=== PATIENT | female | born 1995 | race Caucasian/White ===

== ENCOUNTER 2018-04-28 11:56 | Emergency (ER) | payer OTHER ==
[2018-04-28 12:16] VITALS: BP 127/78; PULSE 73; TEMP 98.3; BMI 28.5
[2018-04-28] MEDS ORDERED: METOCLOPRAMIDE HCL INJECTION 10 MG/2 ML VIAL IVPB ONE (13:38)
[2018-04-28] MEDS ORDERED: ACETAMINOPHEN 1000 MG/100 ML VIAL (NON FORMULARY) IVPB ONE (13:38)
--- NOTE | 2018-04-28 13:38 | PDOC ---
History of Present Illness - General Chief Complaint: Headache Stated Complaint: HEADACHE Time Seen by Provider: 04/28/18 13:33 Past History - Past Medical History Allergies/Adverse Reactions: Allergies Allergy/AdvReac Type Severity Reaction Status Date / Time Penicillins Allergy Verified 04/28/18 13:42 Home Medications: Ambulatory Orders Erythromycin 0.5% Eye Ointment [Erythromycin 0.5% Eye Ointment -] 1 applic OS TID #1 tube 04/28/18 Ferrous Sulfate, Dried [Iron] 159 mg PO DAILY 04/28/18 Ibuprofen 600 mg PO Q6H #30 tablet 04/28/18 - Suicide/Smoking/Psychosocial Hx Smoking History: Never smoked Have you smoked in the past 12 months: No Information on smoking cessation initiated: No Hx Alcohol Use: No Drug/Substance Use Hx: No *Physical Exam - Vital Signs Last Vital Signs Temp Pulse Resp BP Pulse Ox 98.3 F 73 20 127/78 99 04/28/18 12:13 04/28/18 12:13 04/28/18 12:13 04/28/18 12:13 04/28/18 12:13 Moderate Sedation - Procedure Monitoring Vital Signs: Procedure Monitoring Vital Signs Temperature 98.3 F 04/28/18 12:13 Pulse Rate 73 04/28/18 12:13 Respiratory Rate 20 04/28/18 12:13 Blood Pressure 127/78 04/28/18 12:13 O2 Sat by Pulse Oximetry (%) 99 04/28/18 12:13 *DC/Admit/Observation/Transfer Diagnosis at time of Disposition: Migraine Qualifiers: Migraine type: unspecified Status migrainosus presence: without status migrainosus Intractability: not intractable Qualified Code(s): G43.909 - Migraine, unspecified, not intractable, without status migrainosus Conjunctivitis Qualifiers: Conjunctivitis type: acute Acute conjunctivitis type: unspecified Laterality: left Qualified Code(s): H10.32 - Unspecified acute conjunctivitis, left eye - Discharge Dispostion Disposition: HOME Condition at time of disposition: Stable Decision to Admit order: No - Referrals Referrals: Luis Espinosa MD [Staff Physician] - - Patient Instructions Printed Discharge Instructions: DI for Migraine, DI for Conjunctivitis Additional Instructions: You were treated for your migraine today Take Motrin 600mg every 6 hours for pain. Do not take more than 3,000mg of Motrin a day Eat food before taking the medication You also have conjunctivitis or an eye infection Please use the eye cream three times a day until your symptoms resolve Follow up with your primary care doctor. If you do not have one a referral has been provided Return for any new or worsening symptoms. Recibiste tratamiento para tu migraa hoy [place] Motrin 600 mg cada 6 horas para el dolor. No tome ms de 3,000mg de Motrin al da. Altus alimentos antes de wilfredo el medicamento. Tambin tiene conjuntivitis o jose infeccin ocular. Por favor, use la crema para los ojos ileana veces al da hasta que gamaliel sntomas desaparezcan. Scarlett un seguimiento con subramanian mdico de atencin primaria. Si usted no tiene jair, se ro proporcionado jose referencia Regrese por cualquier sntoma nuevo o que empeore. Print Language: SOMALI - Post Discharge Activity Forms/Work/School Notes: Back to Work
== END 2018-04-28 14:50 | disposition home or self-care (01) ==
LOC: JERFT 11:56
PROC: 3E033NZ Introduction of Analgesics, Hypnotics, Sedatives into Peripheral Vein, Percutaneous Approach (ICD-10-PCS; principal; 2018-04-28)
PROC: 3E033GC Introduction of Other Therapeutic Substance into Peripheral Vein, Percutaneous Approach (ICD-10-PCS; 2018-04-28)
DX: G43.909 Migraine, unspecified, not intractable, without status migrainosus (principal); H10.32 Unspecified acute conjunctivitis, left eye
CPT/HCPCS: 99281-25; J0131

== ENCOUNTER 2019-10-12 09:40 | Inpatient (IN) | payer OTHER ==
[2019-10-12 10:32] VITALS: BMI 41.2
[2019-10-12 10:38] LABS: BASO % 0.2 % (0-2.0); EOS % 0.6 % (0-4.5); HEMATOCRIT 30.5 % (32.4-45.2); LYMPH % 18.4 % (8-40); MCH 25.2 pg (25.7-33.7); MCHC 32.9 g/dl (32.0-36.0); MEAN CELL VOLUME 76.8 fl (80-96); MEAN PLT VOLUME 8.1 fl (7.5-11.1); MONO % 8.8 % (3.8-10.2); PLATELET COUNT 316 K/MM3 (134-434); RBC 3.97 M/mm3 (3.60-5.2); RDW 16.9 % (11.6-15.6); WHITE BLOOD COUNT 9.3 K/mm3 (4.0-10.0)
[2019-10-12 10:46] LABS: INR 0.93 (0.83-1.09)
[2019-10-12 10:49] LABS: ACTIVATED PTT 25.9 SECONDS (25.2-36.5)
[2019-10-12 11:07] LABS: BLOOD UREA NITROGEN 9.1 mg/dL (7-18); CALCIUM 9.2 mg/dL (8.5-10.1); CREATININE 0.8 mg/dL (0.55-1.3); POTASSIUM 4.3 mmol/L (3.5-5.1)
--- NOTE | 2019-10-12 11:42 | HP ---
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 TENDER: No: Alzheimer's, CVA, Dementia, Migraine, Multiple Sclerosis, Peripheral Neuropathy, Parkinson's, Seizure, Syncope, TIA, Vertigo, Other Cardiovascular: No: AFIB, Aneurysm, Aortic Insufficiency, Aortic Stenosis, CAD, CHF, Deep Vein Thrombosis, HTN, Hyperlipdemia, DE, Mitral Insufficiency, Mitral Stenosis, Murmur, Pulmonary Hypertension, Other Pulmonary: No: Asthma, Bronchitis, Cancer, COPD, O2 Dependent, Pneumonia, Previously Intubated, Pulmonary Embolus, Pulmonary Fibrosis, Sleep Apnea, Other Gastrointestinal: No: Ascites, Cancer, Constipation, Crohn's Disease, Diverticulitis, Diverticulosis, Esophageal Varices, Gastritis, GERD, GI Bleed, Hemorrhoids, Hiatal Hernia, Inflamatory Bowel Disease, Irritable Bowel Disease, Pancreatitis, Peptic Ulcer Disease, Ulcerative Colitis, Other Hepatobiliary: No: Cirrhosis, Cholelithiasis, Cholecystitis, Choledocholithiasis, Hepatitis A, Hepatitis B, Hepatitis C, Other Renal/: No: Renal Failure, Renal Inusuff, BPH, Cancer, Hematuria, Hemodialysis, Neurogenic Bladder, Renal Calculi, UTI, Other Reproductive: No: Ectopic , Endometriosis, Fibroids, PID, Polycystic Ovary Syndrome, Postmenopausal, Other ...: 1 ...Para: 0 ...LMP: 12/28/18 ... Weeks Gestation by Dates: 41.0 ...EDC by Dates: 10/05/19 ...EDC by Sono: 10/04/19 Heme/Onc: Yes: Anemia (mild) Infectious Disease: No: AIDS, C-Diff, Herpes Zoster, HIV, MRSA, STD's, Tuberculosis, VREF, Other Psych: No: Addictions, Anxiety, Bipolar, Depression, Panic, Psychosis, Schizophrenia, Other Musculoskeletal: No: Bursitis, Chronic low back pain, Hemiparesis, Hemiplegia, Osteoarthritis, Paraplegia, Other Rheumatology: No: Fibromyalgia, Gout, Lupus, Rheumatoid Arthritis, Sarcoidosis, Vasculitis, Other ENT: No: Allergic Rhinitis, Sinusitis, Other Endocrine: No: Oxford's Disease, [place]'s Disease, Diabetes Insipidus, Diabetes Mellitus, Hyperparathyroidism, Hyperthyroidism, Hypothyroidism, Osteopenia, SIADH, Other Dermatology: No: Basal Cell, Cellulitis, Eczema, Melanoma, Psoriasis, Squamous Cell, Other - Past Surgical History Past Surgical History: Yes: None Hx Myomectomy: No Hx Transabdominal Cerclage: No - Smoking History Smoking history: Never smoked Have you smoked in the past 12 months: No - Alcohol/Substance Use Hx Alcohol Use: No History of Substance Use: reports: None Home Medications - Allergies Allergies/Adverse Reactions: Allergies Allergy/AdvReac Type Severity Reaction Status Date / Time No Known Allergies Allergy Verified 10/12/19 11:13 - Home Medications Home Medications: Ambulatory Orders Ferrous Sulfate [Iron] 325 mg PO DAILY 10/12/19 Prenat 115/Iron Fum/Folic/Dss [ 19 Tablet] 1 tab PO DAILY 10/12/19 Family Medical History Family History: Unremarkable Review of Systems - Review of Systems Constitutional: reports: No Symptoms Eyes: reports: No Symptoms HENT: reports: No Symptoms Neck: reports: No Symptoms Cardiovascular: reports: No Symptoms Respiratory: reports: No Symptoms Gastrointestinal: reports: No Symptoms Genitourinary: reports: No Symptoms Breasts: reports: No Symptoms Reported Musculoskeletal: reports: No Symptoms Integumentary: reports: No Symptoms Neurological: reports: No Symptoms Endocrine: reports: No Symptoms Hematology/Lymphatic: reports: No Symptoms Psychiatric: reports: No Symptoms Physical Exam - Maternity Vital Signs: Vital Signs Temperature 99.1 F 10/12/19 10:24 Pulse Rate 82 10/12/19 10:24 Respiratory Rate 20 10/12/19 10:24 Blood Pressure 133/71 10/12/19 10:24 O2 Sat by Pulse Oximetry (%) Constitutional: Yes: No Distress HENT: Yes: Atraumatic Neck: Yes: Supple Cardiovascular: Yes: Regular Rate and Rhythm Breast(s): Yes: WNL - Abdominal Exam/OB Number of Fetuses: Single Presentation: Vertex (by leopolds) Contractions: Yes Regularity: Irregular Intensity: Mild Monitor Mode: External Heart Rate (range): 145 Category: I Accelerations: Uniform Decelerations: None - Vaginal Exam/OB Vaginal Bleeding: No Speculum Exam: No Dilatation (cm): 0.5 Effacement (%): 20 Amniotic Membrane Status: Intact Station: -3 (cervidil placed in vaginal vault) - Physical Exam Musculoskeletal: Yes: WNL Extremities: Yes: WNL Edema: Yes Edema: LLE: Trace, RLE: Trace Integumentary: Yes: WNL ...Motor Strength: WNL Psychiatric: Yes: Alert, Oriented - Labs Lab Results: CBC, BMP 10/12/19 10:20 10/12/19 10:20 Imaging - Results Ultrasound: Report Reviewed Assessment/Plan 24 y/o G1 @ 41.1 wks presenting for scheduled IOL. Patient denies any issues on admission. OB summary reviewed and significant for mild anemia and GBS +, EFW ~ 4000 g on 10/04/19, GDS 130. PAtient was counseled regarding induction of labor i ncluding but not limited to prolonged induction, increased risk of C/S, and SD. All questions answered and informed consent obtained. Patient was asked regarding a previous documented allergy for penicillin in the EMR system and denied it multiple times. -Proceed with IOL -GBS prophylaxis in labor -F/U admission labs
[2019-10-12] MEDS: ELECTROLYTE-148 SOLN 1,000 ML IV SCH ×2 (12:45→15:32)
--- NOTE | 2019-10-12 13:10 | PN ---
Ante-Partal Exam - Subjective Subjective: Patient is doing well, denies any complaints, evaluated for deceleration Vital Signs: Vital Signs Temperature 99.2 F 10/12/19 11:00 Pulse Rate 67 10/12/19 13:00 Respiratory Rate 18 10/12/19 13:00 Blood Pressure 130/73 10/12/19 13:00 O2 Sat by Pulse Oximetry (%) 99 10/12/19 13:00 Bleeding: No Headache: No Visual changes: No Right upper quadrant pain: No - Contractions Contractions: Yes Regularity: Irregular Monitor Mode: External - Exam during Labor Heart Rate: 145 (prolonged decel 2-3 mins) Variability: Moderate Category: II (recovered with intrauterine resuscitation efforts to 150's with moderate variablitity) Monitor Accelerations: Present Monitor Decelerations: Prolonged Exam: Vaginal Dilatation (cm): 0.5 Effacement (%): 30 Amniotic Membrane Status: Intact Presentation: Vertex (cervidil in place) Station: -3 (cervidil in place) Remarks: Situation explained to patient and all questions answered - Assessment/Plan Assessment/Plan: 24 y/o G1 @ 41.1 wks IOL due to late term, S/P prolonged decel, FHT has recovered, cervidil in place, stable vitals and asymptomatic. Patient counseled regarding situation and All questions answered. -Continuous monitoring -Intrauterine resuscitation efforts -Re-evaluate accordingly -Consider CD if abnormal FHT reoccurs/persists
[2019-10-12] MEDS ORDERED: AMPICILLIN - 2 GM in SODIUM CHLORIDE 100 ML IVPB ONE (14:27)
[2019-10-12] MEDS ORDERED: DINOPROSTONE 10 MG VAGINAL SUPPOSITORY VG ONE (14:27)
[2019-10-12] MEDS ORDERED: AMPICILLIN SODIUM 2 GM VIAL ONE (16:57)
[2019-10-12] MEDS ORDERED: SODIUM CHLORIDE 100 ML IVPB ONE (16:58)
[2019-10-12] MEDS ORDERED: BUTORPHANOL TARTRATE 2 MG/ML VIAL ONE (22:24)
[2019-10-12] MEDS ORDERED: PROMETHAZINE HCL 25 MG/1 ML VIAL ONE (22:24)
[2019-10-12] MEDS ORDERED: AMPICILLIN SODIUM 1 GM VIAL ONE (22:24)
[2019-10-12] MEDS ORDERED: PROMETHAZINE HCL 25 MG/1 ML VIAL IVPB ONE (22:27)
[2019-10-12] MEDS ORDERED: BUTORPHANOL TARTRATE 1 MG/ML VIAL IVPB ONE (22:27)
--- NOTE | 2019-10-12 22:27 | PN ---
Progress Note, Labor Vaginal Exam #1 Labor Exam Date: 10/12/19 Labor Exam Time: 22:26 Heart Rate (range): Cat I Dilatation: 3 Effacement (%): 70 Amniotic Membrane Status: Intact Presentation: Vertex/Position Station: -3 Remarks: AROM, meconium Stadol now; epidural when transferred to L&D room Basilio Espinoza MD
[2019-10-12] MEDS: AMPICILLIN - 1 GM in SODIUM CHLORIDE 100 ML IVPB SCH (22:30)
[2019-10-13] MEDS ORDERED: PCA PUMP NR ONE ×2 (00:48→09:34)
[2019-10-13] MEDS ORDERED: OXYTOCIN 30 UNITS in 0.9% NS 30 UNIT/500 ML INFUS.BAG IVPB ONE (00:48)
[2019-10-13] MEDS: OXYTOCIN 30 UNITS in 0.9% NS 30 UNIT/500 ML INFUS.BAG IVPB SCH (01:02)
[2019-10-13] MEDS ORDERED: NALOXONE HCL 0.4 MG/ML VIAL IVPUSH PRN (01:39)
[2019-10-13] MEDS: FENTANYL/BUPIVACAINE/NS/PF - PCEA - 50 ML DISP.SYRIN EP SCH (01:40)
[2019-10-13] MEDS ORDERED: FENTANYL/BUPIVACAINE/NS/PF - PCEA - 50 ML DISP.SYRIN EP ONE ×5 (01:43→17:03)
[2019-10-13] MEDS ORDERED: AMPICILLIN SODIUM 1 GM VIAL ONE ×5 (02:33→18:46)
[2019-10-13] MEDS: AMPICILLIN - 1 GM in SODIUM CHLORIDE 100 ML IVPB SCH ×5 (02:33→18:40)
[2019-10-13] MEDS ORDERED: SODIUM CHLORIDE 100 ML IVPB ONE ×3 (02:33→14:22)
--- NOTE | 2019-10-13 05:50 | PN ---
Progress Note, Labor Vaginal Exam #2 Labor Exam Date: 10/13/19 Labor Exam Time: 05:49 Heart Rate (range): Cat I Dilatation: 5 Effacement (%): 100 Amniotic Membrane Status: Ruptured Presentation: Vertex/Position Station: -1 Remarks: Comfortable s/p epidural Continue pitocin Anticipate Basilio Espinoza MD
[2019-10-13] MEDS: ELECTROLYTE-148 SOLN 1,000 ML IV SCH (10:30)
--- NOTE | 2019-10-13 10:58 | PN ---
Progress Note (short form) - Note Progress Note: OB transportation project manager note . Pt care handed over to me by Dr Espinoza at 8.00AM for labor management. 24 yrs 41.2 wks admitted on 10/12/19 IOL , cervidil inserted for 12 hrs , followed by Pitocin induction at 1.00AM 10/13/19. AROM at 22.20 on 10/12/19 3cm/70%/light meconium /-2 GBS pos , she has received 4 doses of iV Ampicillin as prophylaxis Fhr Tracing reviewed cat-1 . uc 2-4 min 8.05AM one variable decel down to 70 bpm , allivated by change of position . 9.05 AM fhr tacing base [id number] bpm, cat-1 uc 2-4 min , [id number]/hr . Cx 6/edematous, antlip & lt side /vx caput /-2 /mr Reviewed us from 10/04/19 : sliup, vx, fi14.9, efw 8'10" ( 72%tile) , fundal placenta, bpp8/8 epidural labor analgesia since 1.40 AM Selected Entries 10/13/19 10:00 Temperature 98.4 F Pulse Rate 78 Blood Pressure 141/67 BMI 41.3 Laboratory Tests 10/12/19 10/12/19 10/12/19 10:15 10:20 10:20 WBC 9.3 RBC 3.97 Hgb 10.0 L Hct 30.5 L Plt Count 316 PT with INR 11.00 INR 0.93 PTT (Actin FS) 25.9 Sodium Potassium Chloride Carbon Dioxide BUN Creatinine Random Glucose Syphilis Serology COVID-19 ([facility]) Pending 10/12/19 10/12/19 10:20 10:20 WBC RBC Hgb Hct Plt Count PT with INR INR PTT (Actin FS) Sodium 139 Potassium 4.3 Chloride 109 H Carbon Dioxide 19 L BUN 9.1 Creatinine 0.8 Random Glucose 90 Syphilis Serology Non-reactive COVID-19 ([facility]) Plan ct trial of labor
--- NOTE | 2019-10-13 12:19 | PN ---
Progress Note (short form) - Note Progress Note: pelvic exam "12.05 PM cx 7cm/ant lip edematous, rt lip edema /vx-1/caput/pelvis ? adequate fhr 145, cat-1 . uc 2-4 min , pit 12 ml/hr gautam catheter blood staining in tubing , possible trauma , gautam bag drained 300 ml urine , catheter flushed, watch for output & hematuria 2.00 PM cx8cm/irregularly effaced 90 %/ vx 0 station fhr 145-150 cat-1 UC 2-3 min gautam output 100ml , urine color desmond color in tubing, in the bag appears red color c/o back ache & pressure Selected Entries 10/13/19 10/13/19 10/13/19 12:00 12:15 12:30 Temperature 98.6 F Pulse Rate 83 81 Blood Pressure 126/67 10/13/19 10/13/19 10/13/19 12:45 13:00 13:15 Temperature Pulse Rate 86 83 82 Blood Pressure 131/63 109/73 10/13/19 13:30 Temperature Pulse Rate 86 Blood Pressure 123/78 2.00 PM TEMP 99.4 plan : labor management passed on to continuing education director Dr Usha Randolph
[2019-10-13] MEDS ORDERED: PROMETHAZINE HCL 25 MG/1 ML VIAL ONE (15:13)
--- NOTE | 2019-10-13 15:42 | PN ---
Progress Note (short form) - Note Progress Note: took management of this patient in labor cx 9 cm 80 vx 0 ,mr, fhr cat , regular contraction gautam bloody urine noted plan remove gautam cath revaluate
[2019-10-13] MEDS ORDERED: PROMETHAZINE HCL 25 MG/1 ML VIAL IVPB ONE (15:45)
--- NOTE | 2019-10-13 17:56 | PN ---
Progress Note (short form) - Note Progress Note: cx full 100 vx 2+, mr, fhr cat1 expect vaginal delivery
[2019-10-13] MEDS ORDERED: OXYTOCIN 20 UNITS in 0.9% NS 20 UNIT/1,000 ML INFUS.BAG IV ONE (18:08)
[2019-10-13] MEDS ORDERED: LIDOCAINE HCL 1% PRESERVATIVE FREE - 30ML VIAL ONE (18:15)
[2019-10-13 21:23] LABS: CORD BASE EXCESS -8.2 mmol/L (0-2); CORD HCO3 17.4 mmHg (20-29); CORD PCO2 36.5 mmHg (30-78); CORD pH 7.295 (7.14-7.44)
[2019-10-14] MEDS: IBUPROFEN 600 MG TABLET (FP) PO PRN ×2 (01:35→17:34)
[2019-10-14] MEDS: ACETAMINOPHEN 325 MG TABLET (FP) PO PRN ×2 (01:35→17:34)
[2019-10-14] MEDS: OXYTOCIN 30 UNITS in 0.9% NS 30 UNIT/500 ML INFUS.BAG IVPB SCH (03:26)
[2019-10-14] MEDS: FENTANYL/BUPIVACAINE/NS/PF - PCEA - 50 ML DISP.SYRIN EP SCH (03:26)
--- NOTE | 2019-10-14 07:27 | PN ---
Progress Note (short form) - Note Progress Note: ppd 1 s/p , doing well, no excess vaginal bleeding,ambulating CBC, BMP 10/12/19 10:20 10/12/19 10:20 Last Vital Signs Temp Pulse Resp BP Pulse Ox 98.7 F 93 H 18 101/56 L 100 10/14/19 06:00 10/14/19 06:00 10/14/19 06:00 10/14/19 06:00 10/13/19 20:30 abdomen soft, non tender, uterus firm, non tender lochia mild no calf tenderness no excess vaginal bleeding ppd 1 , doing well plan cbc ambulate for d/c home in am
[2019-10-15 00:17] VITALS: BP 101/71; PULSE 81; TEMP 98.3
[2019-10-15] MEDS: IBUPROFEN 600 MG TABLET (FP) PO PRN ×2 (01:43→11:10)
[2019-10-15] MEDS: ACETAMINOPHEN 325 MG TABLET (FP) PO PRN ×2 (01:44→11:10)
[2019-10-15] MEDS ORDERED: ACETAMINOPHEN 325 MG TABLET (FP) PO PRN (10:23)
[2019-10-15] MEDS ORDERED: BENZOCAINE 20% 57 GM BOTTLE TP PRN (10:23)
[2019-10-15] MEDS ORDERED: METHYLERGONOVINE MALEATE 0.2 MG/1 ML AMP IM PRN (10:23)
[2019-10-15] MEDS ORDERED: WITCH HAZEL 50% (TUCKS) 40 PAD/JAR PAD TP PRN (10:23)
[2019-10-15] MEDS ORDERED: BENZOCAINE 28 GM HEMORRHOIDAL OINTMENT TP PRN (10:23)
[2019-10-15] MEDS ORDERED: IBUPROFEN 600 MG TABLET (FP) PO PRN (10:23)
[2019-10-15] MEDS ORDERED: BISACODYL 10 MG SUPP.RECT RC PRN (10:23)
--- NOTE | 2019-10-15 12:15 | DS ---
Physical Exam-WIRE STRAIGHTENER Vital Signs: Vital Signs Temperature 98.3 F 10/14/19 22:00 Pulse Rate 81 10/14/19 22:00 Respiratory Rate 18 10/14/19 22:00 Blood Pressure 101/71 10/14/19 22:00 O2 Sat by Pulse Oximetry (%) 100 10/14/19 22:00 Constitutional: Yes: Well Nourished, No Distress, Calm Eyes: Yes: WNL, Conjunctiva Clear, EOM Intact HENT: Yes: WNL, Atraumatic, Normocephalic Neck: Yes: WNL, Supple, Trachea Midline Cardiovascular: Yes: WNL, Regular Rate and Rhythm Respiratory: Yes: WNL, Regular, CTA Bilaterally Gastrointestinal: Yes: WNL ...Rectal Exam: Yes: WNL Renal/: Yes: WNL ....Post : Yes: Uterus firm, Uterus non-tender, Slight lochia rubra Breast(s): Yes: WNL Musculoskeletal: Yes: WNL Extremities: Yes: WNL Edema: No Integumentary: Yes: WNL Neurological: Yes: WNL, Alert, Oriented ...Motor Strength: WNL Psychiatric: Yes: WNL, Alert, Oriented Labs: CBC, BMP 10/12/19 10:20 10/12/19 10:20 Delivery - Delivery Vaginal Delivery: Spontaneous (cx full , head on pernium ,median episiotomy done , head dieliverd RONAK, ant, and post, shoulder with no difficulty, livebabyboy, 9/9 , placenta complete , median episiotomy in 3 layers with 20 chromic , rectal exam negative , [id number], no complication, baby bonded with mom) Type of Anesthesia: Epidural Episiotomy/Laceration: Midline EBL (cc): 300 Delivery, Single - Stages of Labor Date 1st Stage Initiatied: 10/12/19 Time 1st Stage Initiated: 22:20 Date 2nd Stage Initiated: 10/13/19 Time 2nd Stage Initiated: 19:00 Date of Delivery: 10/13/19 Time of Delivery: 19:23 Time Placenta Delivered: 19:25 Placenta: Yes: Expressed - 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 Career Present: No Gender: Male Weight: 9 lb 13 oz Position: Left, OA Total Hours ROM (Hrs/Mins): 21h3m - 1 Minute Total Score: 8 5 Minutes Total Score: 9 - [place] Feeding Plan Initial Plan: Exclusive throughout hospitalization Discharge Summary Problems reviewed: Yes Reason For Visit: INDUCTION OF LABOR postdate, macrosomia Procedures: Principal: Hospital Course: no complication Plan of Treatment: follow up [facility] care 4 weeks Condition: Good - Instructions Diet, Activity, Other Instructions: regular diet, no intercourse, follow up [facility] care 4 weeks, if fever, heavy vaginal bleeding call md Referrals: Wilma Espinoza MD [Staff Physician] - Elijah Kerr MD [Staff Physician] - Disposition: HOME - Home Medications Comprehensive Discharge Medication List: Ambulatory Orders Ferrous Sulfate [Iron] 325 mg PO DAILY 10/12/19 Prenat 115/Iron Fum/Folic/Dss [ 19 Tablet] 1 tab PO DAILY 10/12/19 Breast Pump 1 each MC 5XD 30 Days #1 each 10/14/19 Ibuprofen [Motrin -] 600 mg PO QID #28 tablet 10/14/19
[2019-10-15] MEDS ORDERED: FERROUS SO4 325 MG TABLET (FP) PO SCH (22:00)
[2019-10-16] MEDS ORDERED: PRENATAL VITAMINS W/ FOLIC ACID TABLET (FP) PO SCH (10:00)
[2019-10-16] MEDS ORDERED: SENNOSIDES/DOCUSATE COMBO (SENNA PLUS) TABLET (UD) PO PRN (22:00)
== END 2019-10-15 12:15 | disposition home or self-care (01) | DRG 560 ==
LOC: JLDR 09:40 → J3W 10-13 21:15
PROVIDERS: ADMIT Obstetrics & Gynecology; ATTEND Obstetrics & Gynecology
PROC: 3E0P7VZ Introduction of Hormone into Female Reproductive, Via Natural or Artificial Opening (ICD-10-PCS; 2019-10-12)
PROC: 10E0XZZ Delivery of Products of Conception, External Approach (ICD-10-PCS; principal; 2019-10-13)
PROC: 10907ZC Drainage of Amniotic Fluid, Therapeutic from Products of Conception, Via Natural or Artificial Opening (ICD-10-PCS; 2019-10-13)
PROC: 0W8NXZZ Division of Female Perineum, External Approach (ICD-10-PCS; 2019-10-13)
DX: O48.0 Post-term pregnancy (principal); Z3A.41 41 weeks gestation of pregnancy; Z37.0 Single live birth; O36.63X0 Maternal care for excessive fetal growth, third trimester, not applicable or unspecified; O77.0 Labor and delivery complicated by meconium in amniotic fluid; O99.824 Streptococcus B carrier state complicating childbirth; O99.214 Obesity complicating childbirth; E66.01 Morbid (severe) obesity due to excess calories; O99.02 Anemia complicating childbirth; D64.9 Anemia, unspecified; Z87.440 Personal history of urinary (tract) infections
CPT/HCPCS: 36415; 36600; 59409; 80048; 82803; 85025; 85610; 85730; 86780; 86850; 86900; 86901; U0003

== ENCOUNTER 2022-11-19 12:00 | Inpatient (IN) | payer OTHER ==
[2022-11-19] MEDS ORDERED: CITRIC ACID/SODIUM CITRATE 30 ML UNIT-DOSE CUP PO ONE (13:12)
[2022-11-19] MEDS ORDERED: ELECTROLYTE-148 SOLN 1,000 ML IV SCH (13:15)
[2022-11-19 13:36] VITALS: BMI 44.8
[2022-11-19] MEDS ORDERED: ONDANSETRON 4 MG/2 ML VIAL IVPUSH PRN (13:36)
[2022-11-19] MEDS ORDERED: morphine SULFATE/PF 1 MG/2 ML (2cc Syringe - QUVA) EP ONE (13:36)
[2022-11-19] MEDS ORDERED: IBUPROFEN 600 MG TABLET (FP) PO PRN (13:37)
[2022-11-19] MEDS ORDERED: ACETAMINOPHEN 325 MG TABLET (FP) PO PRN ×2 (13:37→14:43)
[2022-11-19] MEDS ORDERED: morphine SULFATE/PF 1 MG/2 ML (2cc Syringe - QUVA) ONE (13:41)
[2022-11-19] MEDS ORDERED: ceFAZolin SODIUM 1 GM VIAL ONE (13:42)
[2022-11-19] MEDS ORDERED: SODIUM CHLORIDE 0.9% P/F 10 ML VIAL IJ ONE (13:42)
[2022-11-19] MEDS ORDERED: PHENYLEPHRINE HCL 10 MG/1 ML SINGLE DOSE VIAL ONE (13:55)
[2022-11-19] MEDS ORDERED: OXYTOCIN 10 UNITS/ML VIAL ONE (14:13)
[2022-11-19] MEDS ORDERED: ONDANSETRON 4 MG/2 ML VIAL ONE (14:20)
[2022-11-19] MEDS ORDERED: KETOROLAC TROMETHAMINE 60 MG/2 ML VIAL ONE (14:20)
[2022-11-19] MEDS ORDERED: IBUPROFEN 800 MG/8 ML IJ IVPB PRN (14:43)
[2022-11-19] MEDS ORDERED: OXYTOCIN 20 UNITS in 0.9% NS 20 UNIT/1,000 ML INFUS.BAG IV ONE (16:18)
[2022-11-19] MEDS: OXYTOCIN 20 UNITS in 0.9% NS 20 UNIT/1,000 ML INFUS.BAG IV SCH ×2 (16:35→23:00)
[2022-11-19] MEDS: METHYLERGONOVINE MALEATE 0.2 MG/1 ML AMP IM PRN ×2 (19:58→23:45)
[2022-11-20] MEDS ORDERED: oxyCODONE HCL 5 MG TABLET PO PRN (02:43)
[2022-11-20] MEDS: SIMETHICONE 80 MG TAB.CHEW (FP) PO PRN ×2 (03:38→21:41)
[2022-11-20 07:53] LABS: BASO % 0.2 % (0-2.0); EOS % 0.2 % (0-4.5); HEMATOCRIT 28.4 % (32.4-45.2); HEMOGLOBIN 9.6 GM/dL (10.7-15.3); LYMPH % 10.5 % (8-40); MCH 27.4 pg (25.7-33.7); MEAN CELL VOLUME 80.8 fl (80-96); MONO % 7.8 % (3.8-10.2); NEUT % 81.3 % (42.8-82.8); PLATELET COUNT 223 10^3/uL (134-434); RBC 3.51 M/mm3 (3.60-5.2); RDW 23.2 % (11.6-15.6); WHITE BLOOD COUNT 8.6 K/mm3 (4.0-10.0)
[2022-11-20] MEDS ORDERED: DIPHTH,PERTUSS(ACELL),TET 0.5 ML DISP.SYRIN IM ONE (10:00)
[2022-11-20] MEDS: IBUPROFEN 600 MG TABLET (FP) PO PRN ×3 (12:42→21:42)
[2022-11-20] MEDS ORDERED: BISACODYL 10 MG SUPP.RECT RC PRN (14:43)
[2022-11-20] MEDS: OXYTOCIN 20 UNITS in 0.9% NS 20 UNIT/1,000 ML INFUS.BAG IV SCH (14:46)
[2022-11-21] MEDS: IBUPROFEN 600 MG TABLET (FP) PO PRN ×3 (07:07→21:17)
[2022-11-21] MEDS: SIMETHICONE 80 MG TAB.CHEW (FP) PO PRN ×2 (07:07→21:18)
[2022-11-22 07:45] LABS: BASO % 0.3 % (0-2.0); HEMATOCRIT 24.4 % (32.4-45.2); LYMPH % 20.1 % (8-40); MCH 26.4 pg (25.7-33.7); MCHC 32.7 g/dl (32.0-36.0); MEAN CELL VOLUME 80.8 fl (80-96); MEAN PLT VOLUME 7.2 fl (7.5-11.1); NEUT % 68.6 % (42.8-82.8); PLATELET COUNT 264 10^3/uL (134-434); RBC 3.02 M/mm3 (3.60-5.2); RDW 22.9 % (11.6-15.6); WHITE BLOOD COUNT 7.7 K/mm3 (4.0-10.0)
[2022-11-22 12:09] VITALS: BP 107/72; PULSE 85; RESP 17; TEMP 97.9
== END 2022-11-22 13:35 | disposition home or self-care (01) | DRG 540 ==
LOC: JLDR 12:00 → J3W 16:30
PROVIDERS: ADMIT Obstetrics & Gynecology; ATTEND Obstetrics & Gynecology
PROC: 10D00Z1 Extraction of Products of Conception, Low, Open Approach (ICD-10-PCS; principal; 2022-11-19)
DX: O36.63X0 Maternal care for excessive fetal growth, third trimester, not applicable or unspecified (principal); O99.214 Obesity complicating childbirth; E66.01 Morbid (severe) obesity due to excess calories; O99.02 Anemia complicating childbirth; D64.9 Anemia, unspecified; Z3A.40 40 weeks gestation of pregnancy; Z37.0 Single live birth
CPT/HCPCS: 36415; 80053; 85025; 85610; 86780; 86850; 86900; 86901; 88307-TC; 90715

== ENCOUNTER 2024-06-15 09:39 | Emergency (ER) | payer OTHER ==
[2024-06-15 10:01] VITALS: RESP 16; TEMP 98.5; BMI 39.5
[2024-06-15 10:40] LABS: ABSOLUTE IMMATURE GRANULOCYTES 0.03 x10^3/uL (0.0-0.031); BASOPHILS # 0.03 x10^3/uL (0.01-0.08); EOSINOPHIL % 3.3 % (0.7-5.8); EOSINOPHILS # 0.25 x10^3/uL (0.04-0.36); HEMOGLOBIN 8.9 g/dL (11.2-15.7); MCHC 31.8 g/dl (32.2-35.5); MEAN CELL VOLUME 75.9 fl (79.4-94.8); MEAN PLT VOLUME 8.5 fl (9.4-12.3); MONOCYTE # 0.58 x10^3/uL (0.24-0.86); MONOCYTE % 7.6 % (4.7-12.5); PLATELET COUNT # 478 x10^3/uL (182-369); RDW 15.7 % (12.1-16.5)
[2024-06-15 10:43] LABS: EPI CELLS 8 /uL (0-25.1); HYALINE CASTS 0 /uL (0-3.1); PH,URINE 6.5 (5.0-8.0); URINE APPEARANCE CLEAR; URINE BACTERIA >9,000 /uL (0-1359); URINE BILIRUBIN NEGATIVE (NEGATIVE); URINE COLOR YELLOW; URINE GLUCOSE (UA) NEGATIVE (NEGATIVE); URINE KETONE NEGATIVE (NEGATIVE); URINE LEUK ESTERASE NEGATIVE (NEGATIVE); URINE NITRITE POSITIVE (NEGATIVE); URINE PROTEIN NEGATIVE (NEGATIVE); URINE RBC 8 /uL (0-23.9); URINE UROBILINOGEN 0.2 mg/dL (0.2-1.0); URINE WBC 32 /uL (0-25.8)
[2024-06-15 10:51] LABS: INR 1.06 (0.83-1.09); PROTHROMBIN TIME (PATIENT) 11.6 SEC (9.7-13.0)
[2024-06-15 10:54] LABS: ACTIVATED PTT 32.8 SECONDS (25.2-36.5)
[2024-06-15 11:07] LABS: POTASSIUM 3.7 mmol/L (3.5-5.1)
[2024-06-15 11:09] LABS: BLOOD UREA NITROGEN 7.7 mg/dL (7-18); CALCIUM 9.2 mg/dL (8.5-10.1)
[2024-06-15 11:10] LABS: ALBUMIN 4.2 g/dl (3.4-5.0)
[2024-06-15 11:13] LABS: CREATININE 0.8 mg/dL (0.55-1.3)
[2024-06-15 11:14] LABS: TOT PROT 7.9 g/dl (6.4-8.2)
[2024-06-15 11:16] LABS: BILIRUBIN,TOTAL 0.4 mg/dL (0.2-1)
[2024-06-15 11:34] LABS: HCG,QUALITATIVE URINE Negative
[2024-06-15 12:28] VITALS: BP 130/88; PULSE 96
[2024-06-15 12:42] LABS: HCV DIAGNOSTIC IN-HOUSE W/RFLX NON-REACTIVE (NONREACTIVE); HIV INTERPRETATION NEGATIVE (NEGATIVE)
== END 2024-06-15 13:02 | disposition home or self-care (01) ==
LOC: JER 09:39
DX: O03.9 Complete or unspecified spontaneous abortion without complication (principal); N39.0 Urinary tract infection, site not specified
CPT/HCPCS: 36415; 76817-TC; 80053; 81003; 84702; 84703; 85025; 85610; 85730; 86803; 86850; 86900; 86901; 87086; 87186; 87389; 99284-25